=== PATIENT | male | born 1995 | race Caucasian/White ===

== ENCOUNTER 2019-01-02 17:56 | Observation (INO) | payer OTHER ==
[2019-01-02] MEDS ORDERED: Pantoprazole 40 MG VIAL ONE (18:44)
[2019-01-02] MEDS ORDERED: Pantoprazole 80 MG, Admixture Fee 1 EACH in Sodium Chloride 0.9% 100 ML IVP SCH (18:45)
[2019-01-02 18:48] LABS: #Lymphocytes 1.9 thou/uL (1.20-3.40); #Monocytes 0.6 thou/uL (0.11-0.59); #Neutrophils 11.8 thou/uL (1.40-6.50); %Basophils 0.3 % (0.0-1.0); %Eosinophils 0.3 % (0.0-10.0); %Lymphocytes 13.1 % (21.0-51.0); %Monocytes 4.4 % (0.0-10.0); %Neutrophils 81.9 % (42.0-75.0); Hemoglobin 12.5 g/dL (14.0-18.0); Mean Corpuscular Hemoglobin 32.8 pg (27.0-31.0); Mean Corpuscular Volume 96.4 fL (78.0-98.0); Mean Platelet Volume 6.1 fL (7.4-10.4); Platelet Count 323 thou/uL (130-400); RBC Distribution Width 12.2 % (11.5-14.5); White Blood Cell (WBC) Count 14.4 thou/uL (4.8-10.8)
[2019-01-02 18:54] LABS: INR-International Normal Ratio 1.1; PTT 25.9 SEC (22.9-36.1); Prothrombin Time 14.7 SEC (12.0-14.7)
[2019-01-02 19:05] LABS: ALT (SGPT) 15 U/L (8-55); AST (SGOT) 17 U/L (5-34); Albumin 3.9 g/dL (3.5-5.0); Alkaline Phosphatase 41 U/L (40-150); Anion Gap 11 mmol/L (10-20); BUN (Urea Nitrogen) 19 mg/dL (8.9-20.6); Bilirubin, Total 0.4 mg/dL (0.2-1.2); Calc. Creatinine Clearance 0 mL/min (70-130); Calcium 8.1 mg/dL (7.8-10.44); Carbon Dioxide 25 mmol/L (22-29); Chloride 108 mmol/L (98-107); Estimated GFR-MDRD Greater than 90; Globulin 1.9 g/dL (2.4-3.5); Glucose 80 mg/dL (70-105); Potassium 4.3 mmol/L (3.5-5.1); Protein, Total 5.8 g/dL (6.0-8.3); Sodium 140 mmol/L (136-145)
[2019-01-02] MEDS ORDERED: Ondansetron PF 4 MG/2 ML Vial ONE (21:06)
[2019-01-02 23:31] VITALS: BMI 22.1
[2019-01-02] MEDS: Lactated Ringer's 1,000 ML IV SCH (23:43)
[2019-01-03] MEDS ORDERED: Ondansetron PF 4 MG/2 ML Vial IVP PRN (00:16)
[2019-01-03] MEDS ORDERED: Acetaminophen 500 MG TAB PO PRN (00:16)
[2019-01-03] MEDS ORDERED: Ondansetron ODT 4 MG TAB PO PRN (00:16)
[2019-01-03] MEDS: Sodium Chloride 0.9% 1,000 ML IV SCH ×3 (00:46→13:40)
[2019-01-03] MEDS: Pantoprazole 80 MG in Sodium Chloride 0.9% 100 ML IVP SCH ×2 (03:09→13:36)
[2019-01-03 05:43] LABS: Hemoglobin 10.8 g/dL (14.0-18.0); Lymphocytes 50 % (21-51); MDiff Complete? YES; Mean Corpuscular HGB CONC 33.2 g/dL (32.0-36.0); Mean Corpuscular Hemoglobin 31.9 pg (27.0-31.0); Mean Corpuscular Volume 95.9 fL (78.0-98.0); Mean Platelet Volume 6.5 fL (7.4-10.4); Monocytes 5 % (0-10); Neutrophil 41 % (42-75); Platelet Count 306 thou/uL (130-400); Platelet Morphology Comment Appears Adequate; RBC Distribution Width 12.3 % (11.5-14.5); RBC Morphology Normal; Reactive Lymphocytes 4 % (0-10); White Blood Cell (WBC) Count 11.7 thou/uL (4.8-10.8)
[2019-01-03 05:50] LABS: ALT (SGPT) 13 U/L (8-55); AST (SGOT) 14 U/L (5-34); Albumin 3.8 g/dL (3.5-5.0); Alkaline Phosphatase 38 U/L (40-150); Anion Gap 9 mmol/L (10-20); BUN (Urea Nitrogen) 19 mg/dL (8.9-20.6); Bilirubin, Total 0.7 mg/dL (0.2-1.2); Calc. Creatinine Clearance 146 mL/min (70-130); Calcium 8.6 mg/dL (7.8-10.44); Carbon Dioxide 26 mmol/L (22-29); Chloride 107 mmol/L (98-107); Estimated GFR-MDRD Greater than 90; Globulin 1.7 g/dL (2.4-3.5); Glucose 70 mg/dL (70-105); Potassium 3.9 mmol/L (3.5-5.1); Protein, Total 5.5 g/dL (6.0-8.3); Sodium 138 mmol/L (136-145)
[2019-01-03] MEDS: Lactated Ringer's 1,000 ML IV SCH (07:14)
--- NOTE | 2019-01-03 08:12 | CON ---
DATE OF CONSULTATION: 01/03/2019 REASON FOR CONSULTATION: Hematemesis. HISTORY OF PRESENT ILLNESS: Nickolas Mendoza is a 23-year-old man with no significant past medical or surgical history. He does have some chronic intermittent reflux symptoms for which he takes Zantac on an as-needed basis and he does smoke tobacco. He is not on any prescription medications. He has not had any abdominal surgeries. He was at [employer] yesterday and drinking quite a bit. He had 8 to 10 beers the day before yesterday and then about 5 drinks yesterday. He had the sudden onset of nausea and upper abdominal discomfort. He then had 3 episodes of emesis, which he describes as a large amount of santosh blood. This was witnessed and reportedly he had about 1.5 to 2 L of bright red blood that he threw up. Following the emesis, he was a bit lightheaded, but this was only transient. His nausea and abdominal pain quickly improved. Upon arrival, hemoglobin was 12.5 and this morning after some IV fluids, it is down to 10.8. He has been on a PPI drip overnight, has had no further emesis. No bowel movement. Certainly, no melena. No abdominal pain, and he has remained hemodynamically stable. REVIEW OF SYSTEMS: Full review of systems including constitutional; head, eyes, ears, nose, and throat; GI; ; cardiovascular; respiratory; musculoskeletal; and neurologic systems are negative except as noted in the HPI. PAST MEDICAL HISTORY: Tobacco abuse, tonsillectomy. ALLERGIES: NO KNOWN DRUG ALLERGIES. OUTPATIENT MEDICATIONS: None. SOCIAL HISTORY: He does smoke. He was drinking alcohol heavily this weekend. FAMILY HISTORY: Noncontributory. PHYSICAL EXAMINATION: VITAL SIGNS: Temperature 98.5, pulse 72, blood pressure 132/59, and 98% oxygen saturation on room air. GENERAL: A 23-year-old man, lying in bed comfortably, in no distress. SKIN: No jaundice. No rashes were palpable. HEENT: Eyes; no scleral icterus. Extraocular eye movements intact. ENT; mucous membranes are moist. No oral lesions. LYMPH: No submandibular or supraclavicular lymphadenopathy. THYROID: Nontender to palpation. HEART: Regular rate and rhythm. LUNGS: Clear to auscultation bilaterally. ABDOMEN: Bowel sounds present. Soft, nontender to palpation throughout. No masses or organomegaly appreciated. EXTREMITIES: No peripheral edema. VESSELS: Radial pulses 2+ bilaterally. NEURO: Cranial nerves II through XII intact bilaterally. No focal deficits. LABORATORY STUDIES: Hemoglobin 10.8, WBC 11.7, and platelets 306. INR 1.1. Sodium 138, potassium 3.9, BUN 19, creatinine 0.77, total bilirubin 0.7, alkaline phosphatase 38, AST 14, ALT 13, and albumin 3.8. ASSESSMENT AND PLAN: Hematemesis, following heavy alcohol use over the weekend. This is a single episode, but was evidently large volume. He does have a mild anemia at this point, but is hemodynamically stable. It appears the bleeding has likely stopped. It seems most consistent with likely Charisse-Merchant tear, which is now healing. We did discuss a wider differential with the patient and endoscopic investigation is warranted. We will proceed with EGD later today. In the meantime, continue with the IV PPI. Further recommendations following endoscopy. Thank you for the consultation. Please call anytime with questions or concerns. Job ID: [id number]
[2019-01-03] MEDS ORDERED: Lidocaine 1% PF 5 ML VIAL ONE (10:03)
[2019-01-03] MEDS ORDERED: PROPOFOL 200 MG/20 ML VIAL ONE (10:03)
--- NOTE | 2019-01-03 13:04 | OP ---
DATE OF PROCEDURE: 01/03/2019 RECREATION DIRECTOR SURGEON: None. PROCEDURE PERFORMED: Esophagogastroduodenoscopy, diagnostic. INDICATIONS: 1. Hematemesis. 2. Acute blood loss anemia. MEDICATIONS: See Anesthesia record. FINDINGS: After discussion of the risks, benefits, and alternatives of the procedure, informed consent was obtained and witnessed. Pre-endoscopic cardiopulmonary examination was satisfactory. Time-out was performed before sedation was achieved. Sedation was achieved with Anesthesia assistance in the endoscopy unit. A Pentax adult upper endoscope was placed into the oropharynx and passed through the cricopharyngeus under direct visualization. The proximal and mid esophageal mucosa appeared normal across the GE junction involving the distal esophagus and proximal gastric cardia, there is a long Charisse-Merchant tear. This has a reddish base. There is no friability, no oozing, no bleeding at all from this tear at this time. There is no evidence of any old blood or active bleeding in the stomach. The entire gastric mucosa was examined and was otherwise normal. The endoscope was passed through the pylorus and into the first and second portions of the duodenum, which also appeared normal. The upper endoscope was then completely withdrawn, and the patient allowed to recover. The patient tolerated the procedure well. There were no immediate postprocedure complications. IMPRESSION: 1. Charisse-Merchant tear at the gastroesophageal junction, nonbleeding. 2. Otherwise, normal esophagogastroduodenoscopy. RECOMMENDATIONS: 1. We would treat the patient with pantoprazole 40 mg by mouth daily for the next month. 2. Avoid any alcohol for the next month. 3. Advance diet. 4. Follow up in the GI Clinic in about 1 month. The patient should be okay for discharge home, from a GI perspective. GI will sign off. Please call back anytime with questions or concerns. Job ID: [id number]
[2019-01-03 15:58] VITALS: BP 114/57; TEMP 98.3
--- NOTE | 2019-01-04 05:19 | DIS ---
DATE OF ADMISSION: 01/02/2019 DATE OF DISCHARGE: 01/03/2019 DIAGNOSES AT THE TIME OF DISCHARGE: 1. Charisse-Merchant tear at the gastroesophageal junction, this is most likely the source of bleeding. 2. Acute blood loss anemia. CONSULTANTS: Dr. Antonio Lamb, Gastroenterology. HOSPITAL COURSE: The patient is a 23-year-old man with no significant past medical history, no surgical history, who [employer] yesterday and drinking quite a bit. He had 8 to 10 beers the day before yesterday and then he had 5 drinks yesterday. He had sudden onset of nausea and upper abdominal discomfort. He had 3 episodes of emesis, which described as large amount of santosh blood. It was estimated as up to 2 L of bright red blood. Following the emesis, he was a bit lightheaded. In the emergency room where his hemoglobin was checked and it was 12.5. After IV fluids, it went down to 10.8. He was started on PPI IV drip and got admitted to the hospital for further evaluation. He was seen by Dr. Lamb who did the scope of his upper GI tract which showed Charisse-Merchant tear at the gastroesophageal junction, which was not bleeding and otherwise esophagogastroduodenoscopy was normal, not had any recurrent bleeding or hematemesis. Postprocedure, his vitals are; blood pressure is 114/57, pulse is 71, respiratory rate is 16, temperature is 98.3, O2 saturation is 98% on room air. He is seen and examined before he is discharged. He is discharged home in good condition. ACTIVITIES: As tolerated. DIET: Regular. MEDICATIONS: Protonix 40 mg once a day p.o., #30. FOLLOWUP: Follow up with Dr. Lamb in 1 month. Job ID: [id number]
--- NOTE | 2019-01-04 07:45 | HP ---
PRIMARY CARE PROVIDER: [facility]. CHIEF COMPLAINT: Vomiting blood. HISTORY OF PRESENT ILLNESS: This is a 23-year-old male who presents to [facility] Emergency Department after experiencing several bouts of protracted emesis with blood in his vomit. The patient was at a [facility], where he had been drinking several beers during the course of the day and had approximately 8 to 10 beers the night before. The patient became nauseated with some abdominal cramping and began to vomit blood. The patient does admit to history of gastroesophageal reflux, taking intermittent doses of [id number] Zantac. The patient denies any known history of gastric or esophageal ulcers and states otherwise he is very healthy. The patient states no specific history of bleeding disorders and currently feels symptomatically improved after receiving IV fluids, antiemetics, and Protonix in the emergency room. PAST MEDICAL HISTORY: Gastroesophageal reflux treated with [id number] Zantac. PAST SURGICAL HISTORY: Status post tonsillectomy. CURRENT MEDICATIONS: Zantac [id number]-[id number] p.r.n. ALLERGIES: NO KNOWN DRUG ALLERGIES. FAMILY HISTORY: No inheritable diseases per patient report. SOCIAL HISTORY: The patient is a current [employer] student. Does smoke using a Vape. Drinks occasionally and socially. No illicit drug use. REVIEW OF SYSTEMS: CONSTITUTIONAL: Negative for weight loss or gain, ability to conduct usual activities. SKIN: Negative for rash, itching. EYES: Negative for double vision, pain. ENT/MOUTH: Negative for nose bleeding, neck stiffness, pain, tenderness. CARDIOVASCULAR: Negative for palpitations, dyspnea on exertion, orthopnea. RESPIRATORY: Negative for shortness of breath, wheezing, cough, hemoptysis, fever or night sweats. GASTROINTESTINAL: Negative for poor appetite, abdominal pain, heartburn, nausea, vomiting, constipation, or diarrhea. GENITOURINARY: Negative for urgency, frequency, dysuria, nocturia. MUSCULOSKELETAL: Negative for pain, swelling. NEUROLOGIC/PSYCHIATRIC: Negative for anxiety, depression. ALLERGY/IMMUNOLOGIC: Negative for skin rash, bleeding tendency. Otherwise negative except as stated per HPI. PHYSICAL EXAMINATION: VITAL SIGNS: On admission, blood pressure 113/74, pulse 90, respiratory rate 16, temperature 99 degrees Fahrenheit, O2 saturation 99% on room air. GENERAL APPEARANCE: This is a 23-year-old male, alert and oriented x3, pleasant, smiling, in no acute distress. HEENT: Pupils are equal, round, reactive to light and accommodation. Extraocular muscles are intact. No scleral icterus. No conjunctival injection. Nares are patent. OP is clear. Teeth in good repair. NECK: Supple. No cervical adenopathy. No thyromegaly. No carotid bruits. No JVD appreciated. Cervical spine with full active and passive range of motion. No meningeal signs noted. CHEST: Lungs are clear to auscultation bilaterally. CARDIOVASCULAR: S1, S2 without noted murmur, rub, or gallop. ABDOMEN: Rounded, soft, nontender, and nondistended. Bowel sounds are positive in all 4 quadrants. There is no hepatosplenomegaly. No abdominal bruits. No rebound or guarding appreciated. EXTREMITIES: Warm and dry with fair turgor. No clubbing, cyanosis, or asymmetric edema appreciated. Pulses are palpable distally at the dorsalis pedis, posterior tibial, and popliteal arteries bilaterally. Capillary refill less than 2 seconds. No bruising noted. NEUROLOGIC: Cranial nerves 2 through 12 are grossly intact. No focal or lateralizing signs appreciated. PERTINENT LABORATORY AND X-RAY FINDINGS: Sodium 140, potassium 4.3, chloride 108, CO2 of 25, BUN 19, creatinine 0.78, estimated GFR greater than 90, glucose 80, calcium 8.1. LFTs within normal limits. CBC showed a white blood cell count of 14.4, hemoglobin 12.5, hematocrit 37, platelet count 323, with 82% neutrophils. PT 14.7, INR 1.1, PTT 25.9. ASSESSMENT AND PLAN: 1. Hematemesis. Suspect secondary to multiple episodes of emesis with likely Charisse-Merchant tear. We will continue serial hemoglobin assessment. We will continue antiemetics with Zofran 4 mg IV q.6 hours. Continue Protonix 8 mg/h. Continue clear liquids. We will continue IV fluids and monitor clinical response. GI consultation in the a.m., however, likely no acute intervention will be recommended. 2. Nausea and vomiting. Suspect secondary to alcohol intoxication. Currently clinically stable. Continue antiemetics as stated previously. Continue IV fluids. 3. Neutrophilic leukocytosis. Suspect secondary to multiple episodes of emesis and hematemesis. No current evidence of acute infectious process. Repeat CBC in the a.m. 4. Prophylaxis. Sequential compression devices while in bed. 5. Code status is full. Surrogate medical decision maker is patient's mother. Job ID: [id number]
== END 2019-01-03 18:02 | disposition home or self-care (01) ==
LOC: ERS 17:56 → 2SW 22:56
PROVIDERS: ADMIT Family Medicine; ATTEND Family Medicine
PROC: 0DJ08ZZ Inspection of Upper Intestinal Tract, Via Natural or Artificial Opening Endoscopic (ICD-10-PCS; principal; 2019-01-02)
DX: K22.6 Gastro-esophageal laceration-hemorrhage syndrome (principal); D62 Acute posthemorrhagic anemia; F17.290 Nicotine dependence, other tobacco product, uncomplicated
CPT/HCPCS: 36415; 80053; 85007; 85025; 85027; 85610; 85730; 86850; 86900; 86901; 96365; 96366; 96375; 96376; C9113; G0378; J2001; J2405; J2704; J3490

== ENCOUNTER 2019-10-25 11:19 | Outpatient (CLI) | payer OTHER ==
--- NOTE | 2019-10-25 12:31 | ULT ---
ABDOMINAL ULTRASOUND HISTORY: Abdominal pain. Lack of appetite. FINDINGS: Liver: Within normal limits. Gallbladder: No gallbladder calculi are visualized. There is no gallbladder wall thickening or perich olecystic fluid. Common duct: Common duct is normal in caliber measuring 0.4 cm in diameter. Pancreas: The limited visualized pancreas demonstrates a normal sonographic appearance. IVC: Limited visualized IVC has a normal sonographic appearance. Aorta: The aorta is normal in caliber. Spleen: Within normal limits. Kidneys: Kidneys demonstrate a normal sonographic appearance bilaterally with the right kidney measur ing 10.8 cm in length, and the left kidney measures 10.6 cm in length. IMPRESSION: Abdominal ultrasound is within normal limits. No gallbladder calculi are seen.
== END 2019-10-25 11:20 | disposition home or self-care (01) ==
LOC: SCSULT 11:19
PROVIDERS: ATTEND Internal Medicine
DX: R11.2 Nausea with vomiting, unspecified (principal)
CPT/HCPCS: 93975